=== PATIENT | male | born 1970 | race Caucasian/White ===

== ENCOUNTER 2020-08-16 00:30 | Emergency (ER) | payer BC ==
[~2020-08-16] VITALS: Ht 182.9 cm; Wt 117.9 kg
== END 2020-08-16 03:58 | disposition home or self-care (01) ==
LOC: ED 00:30
DX: N13.2 Hydronephrosis with renal and ureteral calculous obstruction (principal); R73.9 Hyperglycemia, unspecified
CPT/HCPCS: 74176; 80053; 81001; 83690; 85025; 96374; 96375; 99285-25; J1170; J1815; J1885; J2405